=== PATIENT | female | born 1975 | race African-American/Black ===

== ENCOUNTER 2016-09-19 13:37 | Emergency (ER) | payer MEDICAID ==
[~2016-09-19] VITALS: Ht 152.4 cm; Wt 71.2 kg
[~2016-09-19 13:37] MED LIST: ACET325T53 PO; AMLO10TA2 PO; AMOX250C PO; BENA10TA2 PO; INHALERS; PRED20TA PO
[2016-09-19] MEDS ORDERED: ALBU1.25 IH (13:58)
[2016-09-19] MEDS ORDERED: BUTA1CAP17 PO (13:58)
[2016-09-19] MEDS ORDERED: BACL10TA PO (13:58)
[2016-09-19] MEDS ORDERED: AMLO10TA2 PO (13:58)
[2016-09-19] MEDS ORDERED: METF10002 PO (13:58)
[2016-09-19] MEDS ORDERED: IBUP-1957 PO (13:58)
[2016-09-19] MEDS ORDERED: GLIP10TA11 PO (13:58)
--- NOTE | 2016-09-19 14:30 | NUR ---
pt resting, no sign of distress.
[2016-09-19] MEDS ORDERED: ALBUTEROL SULFATE 2.5 MG/3 ML NEBU NEB ONE (15:15)
[2016-09-19] MEDS ORDERED: predniSONE 10 MG TABLET PO ONE (15:15)
[2016-09-19] MEDS ORDERED: IPRATROPIUM BROMIDE 0.5 MG/2.5 ML NEBU NEB ONE (15:15)
[2016-09-19] MEDS ORDERED: predniSONE 50 MG TABLET ONE (15:27)
[2016-09-19] MEDS ORDERED: predniSONE 10 MG TABLET ONE (15:27)
[2016-09-19] MEDS ORDERED: ALBUTEROL SULFATE 2.5 MG/3 ML NEBU ONE (15:31)
[2016-09-19] MEDS ORDERED: IPRATROPIUM BROMIDE 0.5 MG/2.5 ML NEBU ONE (15:31)
[2016-09-19 18:17] LABS: CREATININE 0.8 mg/dL (0.6-1.3); POTASSIUM 3.5 mmol/L (3.5-5.1)
[2016-09-19 18:26] LABS: BILIRUBIN,DIRECT 0.1 mg/dL (0.0-0.2); BILIRUBIN,TOTAL 0.4 mg/dL (0.2-1.0); TOTAL PROTEIN, SERUM 7.6 g/dL (6.4-8.2)
[2016-09-19 18:33] LABS: BASOPHILS # (AUTO) 0.1 K/uL (0.0-8.0); BASOPHILS % (AUTO) 0.5 % (0.0-2.0); EOSINOPHILS % (AUTO) 0.4 % (0.0-7.0); HEMATOCRIT 38.8 % (37-47); HEMOGLOBIN 12.3 G/DL (12.0-16.0); LYMPHOCYTES # (AUTO) 1.3 K/UL (0.8-4.8); LYMPHOCYTES % (AUTO) 11.3 % (20.5-51.5); MEAN CORPUSCULAR HEMOGLOBIN 26.2 UUG (27.0-31.0); MEAN CORPUSCULAR HGB CONC 32 g/dL (32.0-37.0); MEAN CORPUSCULAR VOLUME 82.9 FL (81.0-99.0); MONOCYTES # (AUTO) 0.2 K/UL (0.1-1.30); NEUTROPHILS # (AUTO) 9.7 K/UL (1.8-8.9); NEUTROPHILS % (AUTO) 85.8 % (38.5-71.5); PLATELET COUNT (AUTO) 308 K/UL (150-450); RED BLOOD CELL COUNT(AUTO) 4.69 MIL/UL (4.2-5.4); WHITE BLOOD COUNT (AUTO) 11.3 K/UL (4.0-11.2)
[2016-09-19] MEDS ORDERED: HYDROCODONE/APAP 5-325MG TABLET PO ONE (19:00)
--- NOTE | 2016-09-19 19:06 | NUR ---
Patient discharged to home in stable conditon. Written and verbal after care instructions given. Patient verbalizes understanding of instructions.pt walks in steady gait, no sign of distress. Addendum: 09/19/16 at 1910 by EMMA pt accompanied by family member. pt not driving
[2016-09-19 19:09] VITALS: BP 121/77
[2016-09-19] MEDS ORDERED: HYDROCODONE/APAP 5-325MG TABLET ONE (19:12)
== END 2016-09-19 19:10 | disposition home or self-care (01) ==
LOC: ER 13:40
DX: J45.901 Unspecified asthma with (acute) exacerbation (principal); G89.29 Other chronic pain; F12.929 Cannabis use, unspecified with intoxication, unspecified; I10 Essential (primary) hypertension; G43.909 Migraine, unspecified, not intractable, without status migrainosus; K21.9 Gastro-esophageal reflux disease without esophagitis; M79.7 Fibromyalgia; Z88.1 Allergy status to other antibiotic agents; Z88.2 Allergy status to sulfonamides
CPT/HCPCS: 36415; 70030-TC; 71010; 85025; 85730; 93005; A4663; J3590; J7512